=== PATIENT | male | born 1965 | race African-American/Black ===

== ENCOUNTER 2017-01-19 12:38 | Emergency (ER) | payer OTHER ==
[~2017-01-19] VITALS: Ht 180.3 cm; Wt 99.8 kg
[~2017-01-19 12:38] MED LIST: BACTRIM DS TAB1 EACH PO; CLEOCIN HCL300 MG PO; IBUPROFEN 600600 M1 PO; LISINOPRIL20 MG PO; LISINOPRIL5 MG PO; NORCO 5-325 TA1 EACH PO; NORVASC5 MG PO; PENICILLIN V P500 MG PO; TRAMADOL 50 MG50 MG PO
[2017-01-19 12:44] VITALS: BP 163/121
[2017-01-19] MEDS ORDERED: MOBIC7.5 MG PO (13:44)
== END 2017-01-19 14:03 | disposition home or self-care (01) ==
LOC: ER 12:38
DX: S20.229A Contusion of unspecified back wall of thorax, initial encounter (principal); I10 Essential (primary) hypertension; Z88.6 Allergy status to analgesic agent; X58.XXXA Exposure to other specified factors, initial encounter; Y93.89 Activity, other specified; Y92.89 Other specified places as the place of occurrence of the external cause; Y99.8 Other external cause status

== ENCOUNTER 2017-02-02 09:57 | Emergency (ER) | payer OTHER ==
[~2017-02-02] VITALS: Ht 180.3 cm; Wt 99.8 kg
[~2017-02-02 09:57] MED LIST changes: +MOBIC7.5 MG PO
[2017-02-02 09:58] VITALS: BP 154/110
[2017-02-02] MEDS ORDERED: MOBIC15 MG PO (10:32)
[2017-02-02] MEDS ORDERED: VALIUM5 MG PO (10:32)
== END 2017-02-02 10:50 | disposition home or self-care (01) ==
LOC: ER 09:57
DX: S29.012A Strain of muscle and tendon of back wall of thorax, initial encounter (principal); M54.2 Cervicalgia; I10 Essential (primary) hypertension; F10.99 Alcohol use, unspecified with unspecified alcohol-induced disorder; Z88.6 Allergy status to analgesic agent; X58.XXXA Exposure to other specified factors, initial encounter; Y93.89 Activity, other specified; Y92.89 Other specified places as the place of occurrence of the external cause; Y99.8 Other external cause status

== ENCOUNTER 2017-03-23 13:53 | Emergency (ER) | payer OTHER ==
[~2017-03-23] VITALS: Ht 180.3 cm; Wt 99.8 kg
[~2017-03-23 13:53] MED LIST changes: +MOBIC15 MG PO; +VALIUM5 MG PO
[2017-03-23 13:55] VITALS: BP 179/104
[2017-03-23] MEDS ORDERED: PENICILLIN V P500 MG PO (14:07)
[2017-03-23] MEDS ORDERED: MOBIC15 MG PO (14:07)
[2017-03-23] MEDS ORDERED: HYDROCODONE-AP1 EAC6 PO (14:19)
== END 2017-03-23 14:20 | disposition home or self-care (01) ==
LOC: ER 13:53
DX: K02.9 Dental caries, unspecified (principal); I10 Essential (primary) hypertension

== ENCOUNTER 2017-07-27 10:10 | Emergency (ER) | payer OTHER ==
[~2017-07-27] VITALS: Ht 180.3 cm; Wt 104.3 kg
--- NOTE | ~2017-07-27 | EKG ---
[address] [address] [place] [address] ELECTROCARDIOGRAM REPORT Name: GERALDINE ANN Room #: [id number] Admission: 07/27/17 Attend Phys: Discharge: 07/27/17 Date of : 67 Report #: [id number] THIS REPORT FOR: //name// [facility] ED Test Date: 2017-07-27 Test Time: 11:04:53 Pat Name: GERALDINE ANN Department: Room: Gender: Linen Checker: Rosaline LANZA : 1965 Requested By: Loy Ordonez Order Number: [id number] MD: Arnoldo Anderson Measurements Intervals [place] Rate: 69 P: 40 [place]: 140 QRS: -71 QRSD: 150 T: 8 QT: 417 QTc: 447 Interpretive Statements Sinus rhythm Left anterior hemiblock Right bundle branch block No previous ECG available for comparison Electronically Signed On 07-27-2017 13:49:44 CDT by Arnoldo Anderson [email or web address] <ELECTRONICALLY SIGNED> By: Arnoldo Anderson MD, [facility] 07/27/17 1349 1104 1104 Arnoldo Anderson MD, FACC /EPI
[~2017-07-27 10:10] MED LIST changes: +HYDROCODONE-AP1 EAC6 PO
[2017-07-27 11:33] LABS: ABSOLUTE NEUTROPHILS 3.8 thou/uL (1.4-8.2); BASOPHILS 1.2 % (0.0-2.0); EOSINOPHILS 6.2 % (0.0-3.0); HEMATOCRIT 42.9 % (42.0-52.0); HEMOGLOBIN 14.6 gm/dL (14.0-18.0); LYMPHOCYTES 31.3 % (24.0-44.0); MCH 25.1 pg (26.0-34.0); MCHC 34.1 g/dL (28.0-37.0); MCV 73.5 fL (80.0-100.0); PLATELET COUNT 262 thou/uL (150-400); POLYS 52.3 % (36.0-66.0); RBC 5.83 mil/uL (4.50-6.00); RDW 14.2 % (10.5-14.5); WBC 7.3 thou/uL (4.0-11.0)
[2017-07-27 11:40] LABS: ANION GAP 8 mmol/L (7-16); BUN 11 mg/dL (7-18); CHLORIDE 106 mmol/L (98-107); CO2 27 mmol/L (21-32); CREATININE 1.1 mg/dL (0.7-1.3); GLUCOSE 121 mg/dL (74-106); POTASSIUM 3.9 mmol/L (3.5-5.1); SODIUM 141 mmol/L (136-145)
[2017-07-27 11:49] LABS: TROPONIN-I < 0.04 ng/mL (<0.06)
[2017-07-27] MEDS ORDERED: NORVASC5 MG PO (12:38)
== END 2017-07-27 13:06 | disposition home or self-care (01) ==
LOC: ER 10:10
PROVIDERS: Physician Assistant
DX: I10 Essential (primary) hypertension (principal); F17.210 Nicotine dependence, cigarettes, uncomplicated; Z88.6 Allergy status to analgesic agent

== ENCOUNTER 2017-10-28 17:22 | Emergency (ER) | payer OTHER ==
[~2017-10-28] VITALS: Ht 180.3 cm; Wt 99.8 kg
[2017-10-28] MEDS ORDERED: CENTANY30 GM TOP (17:52)
[2017-10-28] MEDS ORDERED: HYDROCODONE-AP1 EAC6 PO (17:52)
[2017-10-28 18:34] VITALS: BP 167/98
== END 2017-10-28 18:35 | disposition home or self-care (01) ==
LOC: ER 17:22
DX: T22.231A Burn of second degree of right upper arm, initial encounter (principal); T31.0 Burns involving less than 10% of body surface; I10 Essential (primary) hypertension; F17.210 Nicotine dependence, cigarettes, uncomplicated; Z88.6 Allergy status to analgesic agent; X18.XXXA Contact with other hot metals, initial encounter; Y92.89 Other specified places as the place of occurrence of the external cause; Y93.89 Activity, other specified; Y99.8 Other external cause status

== ENCOUNTER 2018-08-30 12:17 | Emergency (ER) | payer OTHER ==
[~2018-08-30] VITALS: Ht 180.3 cm; Wt 104.3 kg
[~2018-08-30 12:17] MED LIST changes: +CENTANY30 GM TOP
[2018-08-30] MEDS ORDERED: NORVASC10 MG PO (12:20)
[2018-08-30] MEDS ORDERED: CIPRODEX OTIC7.5 ML OTIC (14:20)
[2018-08-30] MEDS ORDERED: AUGMENTIN 875-1 EACH PO (14:31)
[2018-08-30 14:53] VITALS: BP 152/107
== END 2018-08-30 14:45 | disposition home or self-care (01) ==
LOC: ER 12:17
DX: H61.21 Impacted cerumen, right ear (principal); I10 Essential (primary) hypertension; F17.210 Nicotine dependence, cigarettes, uncomplicated; Z88.6 Allergy status to analgesic agent

== ENCOUNTER 2020-02-12 12:07 | Emergency (ER) | payer OTHER ==
[~2020-02-12] VITALS: Ht 180.3 cm; Wt 104.3 kg
[~2020-02-12 12:07] MED LIST changes: +AUGMENTIN 875-1 EACH PO; +CIPRODEX OTIC7.5 ML OTIC; +NORVASC10 MG PO
[2020-02-12] MEDS ORDERED: JANUMET XR 1001 EACH PO (12:18)
[2020-02-12] MEDS ORDERED: LISINOPRIL20 MG PO (12:18)
[2020-02-12 13:15] VITALS: BP 156/99
[2020-02-12] MEDS ORDERED: ASPERCREME1 EACH TOP (13:17)
[2020-02-12] MEDS ORDERED: PERCOCET 5-3251 EACH PO (13:17)
[2020-02-12] MEDS ORDERED: IBUPROFEN 800800 MG PO (13:17)
== END 2020-02-12 13:15 | disposition home or self-care (01) ==
LOC: ER 12:07
DX: M25.511 Pain in right shoulder (principal); R53.1 Weakness; E11.9 Type 2 diabetes mellitus without complications; I10 Essential (primary) hypertension; F17.210 Nicotine dependence, cigarettes, uncomplicated; Z79.899 Other long term (current) drug therapy; Z79.82 Long term (current) use of aspirin

== ENCOUNTER 2020-02-22 12:04 | Emergency (ER) | payer OTHER ==
[~2020-02-22] VITALS: Ht 180.3 cm; Wt 104.3 kg
[~2020-02-22 12:04] MED LIST changes: +ASPERCREME1 EACH TOP; +IBUPROFEN 800800 MG PO; +JANUMET XR 1001 EACH PO; +PERCOCET 5-3251 EACH PO
[2020-02-22 12:05] VITALS: BP 146/103
[2020-02-22] MEDS ORDERED: ULTRAM 50MG TAB50 MG PO (12:29)
== END 2020-02-22 13:29 | disposition home or self-care (01) ==
LOC: ER 12:04
DX: M25.511 Pain in right shoulder (principal); Z76.0 Encounter for issue of repeat prescription; I10 Essential (primary) hypertension; E11.9 Type 2 diabetes mellitus without complications; F17.210 Nicotine dependence, cigarettes, uncomplicated; Z79.899 Other long term (current) drug therapy; Z88.6 Allergy status to analgesic agent

== ENCOUNTER 2021-03-05 23:25 | Emergency (ER) | payer OTHER ==
[~2021-03-05] VITALS: Ht 180.3 cm; Wt 99.8 kg
[~2021-03-05 23:25] MED LIST changes: +ULTRAM 50MG TAB50 MG PO
[2021-03-05 23:35] VITALS: BP 177/125
== END 2021-03-06 00:03 | disposition left against medical advice (07) ==
LOC: ER 23:25
DX: N50.89 Other specified disorders of the male genital organs (principal); R20.8 Other disturbances of skin sensation; I10 Essential (primary) hypertension; Z53.21 Procedure and treatment not carried out due to patient leaving prior to being seen by health care provider